=== PATIENT | female | born 1985 | race Caucasian/White ===

== ENCOUNTER → 2019-06-22 | Emergency (ER) | payer OTHER ==
[~2019-06-22] VITALS: Ht 157.5 cm; Wt 80.0 kg
[~2019-06-22] MED LIST: BACTDS PO; BEN25 PO; CEPH-443 PO; DEXAMETHASONE 10 MG/ML 1 ML INJ IM ONE; HYDR-3601 PO; IBUP800T48 PO; PRED20TA PO; TR1B60 TOP
[2019-06-22 10:34] VITALS: BP 141/72; PULSE 84; RESP 18; Ht 157.5 cm; Wt 80.0 kg
--- NOTE | 2019-06-22 16:11 | ERD ---
ER Documentation Chief Complaint Chief Complaint rash x 1 month HPI 33-year-old female presenting with a rash to groin neck abdomen and antecubital spaces. She has a long history of eczema and she states that her eczema has exacerbated due to the heat. Denies any fevers. Denies any other medical problems. Surgical history . Social history denies. NKDA ROS All systems reviewed and are negative except as per history of present illness. Medications Home Meds Active Scripts Triamcinolone Acetonide (Triamcinolone Acetonide) 0.1% - 60 Ml Lotion, 1 APPLIC TOP BID, #1 BOTTLE Prov:DAVID DE LA CRUZ PA-C 06/22/19 Prednisone* (Prednisone*) 20 Mg Tab, 40 MG PO DAILY for 4 Days, TAB Prov:DAVID DE LA CRUZ PA-C 06/22/19 Hydrocodone Bit-Acetaminophen (Hydrocodone Bit-APAP) 5-325MG Tablet, 1 TAB PO Q6H PRN for MODERATE PAIN LEVEL 4-6, #30 TAB Prov:KIRA CASTANO NP 10/17/16 Cephalexin* (Keflex*) 500 Mg Capsule, 500 MG PO Q8, #21 CAP Prov:KIRA CASTANO NP 10/17/16 Sulfamethoxazole-Trimethoprim* (Bactrim* DS) 800-160 Mg Tab, 1 TAB PO BID, #14 TAB Prov:KIRA CASTANO NP 10/17/16 Diphenhydramine Hcl* (Benadryl*) 25 Mg Cap, 25 MG PO Q6, #30 CAP Prov:OMAR MCKEON PA-C 10/09/16 Ibuprofen* (Motrin*) 800 Mg Tab, 800 MG PO Q6, #30 TAB Prov:OMAR MCKEON PA-C 10/09/16 Allergies Allergies: Coded Allergies: No Known Allergy (Unverified , 06/22/19) PMhx/Soc History of Surgery: Yes ( X1) Anesthesia Reaction: No Hx Neurological Disorder: No Hx Respiratory Disorders: No Hx Cardiac Disorders: Yes (PREECLAMPSIA) Hx Psychiatric Problems: No Hx Miscellaneous Medical Probl: No Hx Alcohol Use: No Hx Substance Use: No Hx Tobacco Use: No Smoking Status: Never smoker FmHx Family History: No diabetes, No coronary disease, No other Physical Exam Vitals Vital Signs Date Temp Pulse Resp B/P (MAP) Pulse Ox O2 O2 Flow FiO2 Time Delivery Rate 06/22/19 98.1 84 18 141/72 99 10:34 (95) Physical Exam GENERAL: The patient is well-appearing, well-nourished, in no acute distress HEENT: Atraumatic. Conjunctivae are pink. Pupils equal, round, and reactive to light. There is no scleral icterus. Tympanic membranes clear bilaterally. O ropharynx clear. CHEST: Clear to auscultation bilaterally. There are no rales, wheezes or rhonchi. HEART: Regular rate and rhythm. No murmurs, clicks, rubs or gallops. EXTREMITIES: Equal pulses bilaterally. There is no peripheral clubbing, cyanosis or edema. No focal swelling or erythema. Full range of motion. Grossly neurovascularly intact. NEUROLOGIC: Alert and oriented. Cranial nerves II through XII intact. Motor strength in all 4 extremities with 5 out of 5 strength. Sensation grossly intac t. Normal speech and gait. SKIN: Hyperpigmented regions noted to the antecubital space neck arms and groin with no vesicles or pustules. Mild plaques noted Results 24 hrs Current Medications Medications Dose Sig/Denia Start Time Status Last (Trade) Ordered Route PRN Stop Time Admin Dose Reason Admin 10 mg ONCE ONCE 06/22/19 DC 06/22/19 Dexamethasone IM 11:30 06/22/19 11:22 (Decadron) 11:31 Procedures/MDM Course: Decadron given in ED. MDM: 33-year-old female presenting with findings consistent with eczema. I have low suspicion for life-threatening rash. I have low suspicion for bacterial parasitic infection. Patient is discharged with strict ER precautions and told to follow-up with primary care within 1 to 2 days for close evaluation. Patient is told symptoms change or worsen to return immediately to the ER. All questions answered at discharge Departure Diagnosis: Primary Impression: Eczema Condition: Stable Patient Instructions: Self-Care for Skin Rashes Referrals: COMM[facility] CL[facility] YOU HAVE RECEIVED A MEDICAL SCREENING EXAM AND THE RESULTS INDICATE THAT YOU DO NOT HAVE A CONDITION THAT REQUIRES URGENT TREATMENT IN THE EMERGENCY DEPARTMENT. FURTHER EVALUATION AND TREATMENT OF YOUR CONDITION CAN WAIT UNTIL YOU ARE SEEN IN YOUR DOCTORS OFFICE WITHIN THE NEXT 1-2 DAYS. IT IS YOUR RESPONSIBILITY TO MAKE AN APPOINTMENT FOR FOLOW-UP CARE. IF YOU HAVE A PRIMARY DOCTOR --you should call your primary doctor and schedule an appointment IF YOU DO NOT HAVE A PRIMARY DOCTOR YOU CAN CALL OUR PHYSICIAN REFERRAL HOTLINE AT IF YOU CAN NOT AFFORD TO SEE A PHYSICIAN YOU CAN CHOSE FROM THE FOLLOWING [facility] [address] [facility] [address] [facility] [facility] [address] [facility] [address] [facility]. [facility] [address] [facility] [facility] [address] Additional Instructions: FOLLOW UP WITH YOUR PRIMARY CARE PHYSICIAN TOMORROW.Return to this facility if you are not improving as expected. DAVID DE LA CRUZ PA-C Jun 22, 2019 16:11
== END | disposition home or self-care (01) ==
LOC: FTE 10:27
DX: L30.9 Dermatitis, unspecified (principal)
CPT/HCPCS: 96372; J1100